=== PATIENT | female | born 1975 | race Caucasian/White ===

== ENCOUNTER 2022-04-25 14:26 | Emergency (ER) | payer SELFPAY ==
[2022-04-25 14:31] VITALS: BP 149/86; PULSE 76; TEMP 35.9; O2SAT 99; BMI 28.3
--- NOTE | 2022-04-25 15:03 | ED_ITS ---
HPI - Dizziness General Chief Complaint: Dizziness/Vertigo Stated Complaint: Headache, nausea Time Seen by Provider: 04/25/22 14:28 History of Present Illness HPI Narrative: Patient is a 47-year-old woman who presents with 48 hour history general malaise body aches right-sided musculoskeletal stiff neck as well as dizziness particularly when she turns her head. Patient scribe no focal neurologic defects had no fevers no chills no nuchal rigidity. He has had some nausea with some occasional vomiting. She has no dysuria no abdominal pain and states that she is not she is on oral control. She describes her symptoms as moderate. Related Data Home Medications Medication Instructions Recorded Confirmed No Known Home Medications 04/25/22 04/25/22 Allergies Allergy/AdvReac Type Severity Reaction Status Date / Time No Known Drug Allergies Allergy Verified 04/25/22 14:36 Review of Systems Status of ROS: Reports: 10 or more systems reviewed and unremarkable except as noted in History and below PFSH PFSH Social History Smoking Status: Current every day smoker What tobacco products do you use: cigarettes Do you use any of these nicotine containing products: None Second hand tobacco smoke exposure: No How often do you have a drink containing alcohol: never How often do you have six or more drinks on one occasion: Never AUDIT-C Alcohol total score: 0 Non-prescribed substance use: denies use Exam Const: Vital Signs, click to edit/add: Vital Signs - 24 hr 04/25/22 14:31 Temperature 96.7 F L Pulse Rate [Left P ulse Oximeter] 76 Blood Pressure [Ri ght Upper Arm] 149/86 H Pulse Oximetry 99 Course Vital Signs Vital signs: Initial Vital Signs Temperature 96.7 F L 04/25/22 14:31 Temperature Source Temporal Artery Scan 04/25/22 14:31 Pulse Rate 76 04/25/22 14:31 Blood Pressure 149/86 H 04/25/22 14:31 Blood Pressure Mean 107 04/25/22 14:31 Blood Pressure Position Supine 04/25/22 14:31 Pulse Oximetry 99 04/25/22 14:31 Oxygen Delivery Method 04/25/22 14:31 Vital Signs Temperature 96.7 F L 04/25/22 14:31 Pulse Rate 76 04/25/22 14:31 Blood Pressure 149/86 H 04/25/22 14:31 Pulse Oximetry 99 04/25/22 14:31 Temperature 96.7 F L 04/25/22 14:31 Pulse Rate 76 04/25/22 14:31 Blood Pressure 149/86 H 04/25/22 14:31 Pulse Oximetry 99 04/25/22 14:31 MDM - Dizziness MDM Narrative Medical decision making narrative: We did have a nice discussion about the possible etiologies of her symptoms. Do not believe she is having a cerebrovascular accident her signs of meningitis. Symptoms are most compatible with viral vertigo. Medical Records Medical records narrative: Reviewed Discharge Plan Discharge Clinical Impression: Vertigo Patient Disposition: Home, Self-Care Condition: Stable Instructions: Vertigo (ED) Additional Instructions: Zofran three times per day as needed for nausea Ibuprofen 600 mg three times a day as needed for body aches Rest Hydration Activity Level: Activity as Tolerated Discharge Diet: Regular Prescriptions: No Action No Known Home Medications 0RF Follow Up/Referrals: Leona Adler MD [Primary Care Provider] - Stand Alone Forms: [employer] Info Instructions
== END 2022-04-25 15:17 | disposition home or self-care (01) ==
PROVIDERS: Emergency Provider Internal Medicine; PCP Family Medicine
DX: R42 Dizziness and giddiness (principal)
CPT/HCPCS: 99282; 99283

== ENCOUNTER 2022-05-15 10:51 | Emergency (ER) | payer SELFPAY ==
--- NOTE | 2022-05-15 11:12 | ED_ITS ---
HPI - General Adult General Date Seen: 05/15/22 Chief complaint: Nausea/Vomiting Stated complaint: nausea Time Seen by Provider: 05/15/22 11:07 Source: patient and family Limitations: language barrier History of Present Illness HPI narrative: Patient is a 47-year-old Sami-speaking woman, history is obtained with the assistance of her daughter who is interpreting. They decline a formal full time staff interpreter. Patient was seen here a couple of weeks ago with vertigo. Symptoms started around April 25 with onset of some pain in the right side of her head, vertigo which is minimally positional. She also describes a headache which is mild, biparietal. Symptoms have been persistent. She has been using Zofran which does help with the nausea, but vertigo is been ongoing. She describes a sensation of movement, like she might fall down. She does not really describe feeling like she might pass out. She has not had any fainting. She denies chest pain or shortness of breath. She has not had any vomiting. The neck pain which radiated down into her shoulder, has resolved, but the headache persists. She denies trauma. Symptoms did briefly improve for a few days, but resumed last night and were quite strong. This is what prompted her to return today. She says it really does not get significantly worse when she moves, symptoms just are constant regardless. She does have a history of diabetes, which she does not take medication for. She smokes, denies alcohol use. Denies any prior history of stroke or heart disease, denies any family history of the same. She denies any other neurologic symptoms such as difficulty with speech, weakness, numbness. She is able to walk but says that her balance feels unreliable. She does not have a primary care doctor, she says that she does an upcoming appointment in the clinic for this coming . Related Data Previous Rx's Medication Instructions Recorded meclizine 25 mg tablet 25 mg PO TID #15 tab 05/15/22 Allergies Allergy/AdvReac Type Severity Reaction Status Date / Time No Known Drug Allergies Allergy Verified 05/15/22 13:10 Review of Systems Status of ROS: Reports: 10 or more systems reviewed and unremarkable except as noted in History and below [facility] Medical History Abscess of left groin Abscess of right groin Acute kidney injury Acute renal insufficiency Chest pain Encounter for examination following surgery Mass of left inguinal region Vaginal discharge Vomiting Surgical History History of cholecystectomy Status post incision and drainage Family History Father Diabetes Mother Diabetes Family/Other Diabetes Son Seizure Social History Narrative: Does not drink alcohol Does not exercise 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 In general, an alert, nontoxic woman. Been comfortably. Head: Normocephalic, atraumatic. Eyes: Pupils are equal reactive. Extraocular movements are full, nystagmus on rightward gaze. Conjunctivae are normal. ENT: Mucous membranes are moist. Tongue is midline. Neck: Supple without lymphadenopathy. No bruits. Nontender to palpation. Heart: Regular rate and rhythm. No murmur or rub. Lungs: Clear bilaterally. No increased work of breathing, crackles or wheezes. Abdomen: Soft and nontender. No organomegaly. Extremities: Well perfused. No edema. No calf tenderness. Pulses intact. Neurologic: Patient is alert and oriented to person and place. Speech is fluent. Face is symmetric. Moves all extremities equally. Cerebellar function intact by finger-nose testing. Gait is stable, Romberg negative. Affect: Normal. Skin: Warm and dry. Well perfused. Const: Vital Signs, click to edit/add: Vital Signs - 24 hr 05/15/22 11:22 Temperature 97 F L Pulse Rate [Pulse Oximeter] 68 Respiratory Rate 18 Blood Pressure [Ri ght Upper Arm] 134/86 Pulse Oximetry 99 Documenting provider has reviewed patient's vital signs: yes Course Course Hospital Course: Overall, exam is reassuring, I do not see any signs of ataxia. I am not seeing obvious findings on exam to strongly suggest stroke. She is not hypertensive here. However, with right-sided neck pain a couple of weeks ago and persistent vertigo which is not strongly positional, I do think imaging should be done today to rule out the possibility of dissection. We will go ahead and treat with Zofran and meclizine to start, can add a benzodiazepine if needed for persistent symptoms. CT scan of the head, CT angiogram will be done. I am not overly suspicious of intracranial hemorrhage, but again with headache and persistent symptoms I think this should be ruled out as well. I do not see anything here to suggest intracranial infection. CT of the head by my review is negative for acute hemorrhage or other findings. The final radiology review was likewise negative. Her CT angiogram was read by Radiology as showing the following: CTA head: No proximal large vessel occlusion or flow-limiting stenosis involving the major intracranial arteries. Dominant/nearly azygos right anterior cerebral artery. CTA neck: No evidence of dissection involving the major cervical arteries. No flow-limiting stenosis. She felt improved following medications. I discussed with them that while these 2 tests do not rule out possibility of stroke, they do help rule out the possibility of dissection. I think with isolated vertigo in the absence of findings of ataxia or other neurologic abnormalities, my suspicion of stroke is relatively low. I do not think it is unreasonable for her to take a daily aspirin in anticipation of her upcoming primary care appointment. Her labs including CBC and metabolic panel are notable mostly for an elevated glucose of 306. I have discussed with her that I do think she needs to be on medication for her diabetes. She says that she was at 1 point on medication but has not been for quite some time. Given that she has primary care coming up in a few days of not started her on medication but will let them start something when she sees follow-up in clinic. I have stressed the importance of primary care follow-up. I am going to have her take meclizine at home as this is been helpful for her. It may be that she would benefit from physical therapy for vertigo given persistence of symptoms. Discussed that if she has acute worsening or develops new symptoms I would have her return to the emergency department. Vital Signs Vital signs: Initial Vital Signs Temperature 97 F L 05/15/22 11:22 Temperature Source Temporal Artery Scan 05/15/22 11:22 Pulse Rate 68 05/15/22 11:22 Respiratory Rate 18 05/15/22 11:22 Blood Pressure 134/86 05/15/22 11:22 Blood Pressure Mean 102 05/15/22 11:22 Blood Pressure Position Supine 05/15/22 11:22 Pulse Oximetry 99 05/15/22 11:22 Oxygen Delivery Method 05/15/22 11:22 Vital Signs Temperature 97 F L 05/15/22 11:22 Pulse Rate 68 05/15/22 11:22 Respiratory Rate 18 05/15/22 11:22 Blood Pressure 134/86 05/15/22 11:22 Pulse Oximetry 99 05/15/22 11:22 Temperature 97 F L 05/15/22 11:22 Pulse Rate 68 05/15/22 11:22 Respiratory Rate 18 05/15/22 11:22 Blood Pressure 134/86 05/15/22 11:22 Pulse Oximetry 99 05/15/22 11:22 Medical Decision Making Lab Data Labs: Lab Results 05/15/22 05/15/22 05/15/22 Range/Units 12:00 12:05 12:05 WBC 7.29 (4.50-11.00) K/uL RBC 4.78 (4.00-5.20) m/uL Hgb 14.5 (12.0-16.0) gm/dL Hct 42.3 (33.0-51.0) % MCV 89 (80-100) fL MCH 30 (26-34) pg MCHC 34 (32-36) gm/dL RDW Coeff of Adrian 12.1 (11.5-15.5) % Plt Count 219 (140-440) K/uL Neut % (Auto) 74.2 H (42.0-72.0) % Lymph % (Auto) 21.3 (20-44) % [place] % (Auto) 3.2 (0.0-11.0) % Eos % (Auto) 1.1 (0.0-7.0) % Baso % (Auto) 0.1 (0.0-3.0) % Neut # (Auto) 5.40 (1.7-7.0) K/uL Lymph # (Auto) 1.55 (0.90-2.90) K/uL [place] # (Auto) 0.20 (0.00-0.90) K/UL Eos # (Auto) 0.08 (0.00-0.50) K/uL Baso # (Auto) 0.01 (0.00-0.30) K/uL Abs Immat Gran (auto) 0.01 (0.00-0.30) K/uL INR 1.02 (0.91-1.10) APTT 29 (23-33) Seconds Sodium 134 L (135-149) mmol/L Potassium 4.3 (3.6-5.1) mmol/L Chloride 102 (96-114) mmol/L Carbon Dioxide 26 (20-32) mmol/L BUN 10 (5-24) mg/dL Creatinine 0.5 (0.5-1.5) mg/dL Estimated Creat Clear 106.09 Estimated GFR 117 ml/min Glucose 324 H (60-115) mg/dL Calcium 9.0 (8.4-10.6) mg/dL Discharge Plan Discharge Clinical Impression: Vertigo, Poorly controlled type 2 diabetes mellitus Patient Disposition: Home, Self-Care Condition: Improved Instructions: Vertigo (ED) Additional Instructions: Continue Zofran as needed. Take meclizine as prescribed. Primary care follow- up on as planned, this is very important particularly given your elevated blood sugar. I would recommend for now that you take an aspirin daily. Prescriptions: New meclizine 25 mg tablet 25 mg PO TID Qty: 15 0RF Follow Up/Referrals: Leona Adler MD [Staff Physician] - Stand Alone Forms: [employer] Info Instructions
[2022-05-15 11:22] VITALS: BP 134/86; PULSE 68; RESP 18; TEMP 36.1; O2SAT 99; BMI 27.2
--- NOTE | 2022-05-15 11:42 | CRLHL7_ITS ---
For Patients: As a result of the Century Cures Act, medical imaging exams and procedure reports are released immediately into your electronic medical record. You may view this report before your referring provider. If you have questions, please contact your health care provider. INDICATION: Vertigo. Right neck pain. Headaches. TECHNIQUE: CT of the head without contrast. Coronal and sagittal reformats are included. COMPARISON: None. FINDINGS: No CT evidence of acute cortical infarct. No loss of callejas white matter differentiation. No hyperdense vessels to suggest intracranial thrombus. No acute intracranial hemorrhage. No mass effect or midline shift. No hydrocephalus or extra-axial collections. White matter is within normal limits for age. No acute osseous abnormalities. Mastoid air cells and paranasal sinuses are clear. Normal soft tissues. IMPRESSION: IMPRESSION:1. No CT evidence of acute cortical infarct. No acute intracranial hemorrhage. No other acute intracranial findings. Please note that all CT scans at this facility use dose modulation, iterative reconstruction, and/or weight-based dosing when appropriate to reduce radiation dose to as low as reasonably achievable. Dictated by Sandoval Bowens MD @ 05/15/2022 1:32:04 PM (Electronically Signed)
--- NOTE | 2022-05-15 11:42 | CT_ITS ---
Final Report Patient: EVAN PETIT Facility:?[facility] Patient ID:?[id number] Site Patient ID:?[id number]. Site :?[id number] Study:?CT Head Angio W/ 95CC [id number] 1:23:09 PM Ordering Physician:Taylor Suresh Final Report: DATE: 05/15/2022 CLINICAL HISTORY: Patient with vertigo and headache. TECHNIQUE: Standard helical CT image acquisition through the intracranial circulation following intravenous administration of contrast material with bolus tracking. Multiplanar reconstructed images were performed and interpreted. COMPARISON: CT same day. FINDINGS: There is no cerebral aneurysm or large vessel occlusion. The right internal carotid artery demonstrates moderate narrowing in its supraclinoid segment. The right middle cerebral artery and its branches are normal. The right anterior cerebral artery and its branches are normal. The left internal carotid artery is normal. The left middle cerebral artery and its branches are normal. The left anterior cerebral artery and its branches are normal. The anterior communicating artery is well visualized and appears normal. The right vertebral artery and PICA are normal. The left vertebral artery and PICA are normal. The vertebral arteries are codominant. The basilar artery is patent and appears normal. The right posterior cerebral artery is normal. The left posterior cerebral artery is normal. The visualized venous structures are patent. IMPRESSION: 1. No proximal intracranial large vessel occlusion or large aneurysm. 2. Moderate narrowing in the supraclinoid segment of the right internal carotid artery, likely due to intracranial atherosclerosis. Please note that all CT scans at this facility use dose modulation, iterative reconstruction, and/or weight-based dosing when appropriate to reduce radiation dose to as low as reasonably achievable. Dictated by Feng Martel MD @ 05/15/2022 4:32:12 PM (Electronic Signature)
--- NOTE | 2022-05-15 11:42 | CT_ITS ---
Final Report Patient: EVAN PETIT Facility:?[facility] Patient ID:?[id number] Site Patient ID:?[id number]. Site :?[id number] Study:?CT Neck Angio Angio W/ 95CC [id number] 1:23:06 PM Ordering Physician:Taylor Suresh Final Report: DATE: 05/15/2022 CLINICAL HISTORY: Patient with vertigo and right-sided neck pain. TECHNIQUE: Standard helical CT image acquisition of the neck up to the skull base after bolus intravenous contrast enhancement. Multiplanar reconstructed images performed on a separate workstation. COMPARISON: CT same day. FINDINGS: The origins of the great vessels from the aortic arch are patent. The origin of the right vertebral artery is patent. The origin of the left vertebral artery is patent. The common carotid arteries are patent. There is no stenosis at the origin of the right internal carotid artery. There is no stenosis at the origin of the left internal carotid artery. The rest of the cervical segments of the internal carotid arteries are patent up to the skull base. The left vertebral artery is dominant. The cervical segments of the vertebral arteries are patent up to the skull base. The visualized intracranial vasculature is unremarkable. The visualized lung apices are unremarkable. The thyroid gland is unremarkable. The soft tissues of the neck are unremarkable. There are degenerative changes in the cervical spine. IMPRESSION: Normal CT angiogram of the neck. Please note that all CT scans at this facility use dose modulation, iterative reconstruction, and/or weight-based dosing when appropriate to reduce radiation dose to as low as reasonably achievable. Dictated by Feng Martel MD @ 05/15/2022 4:33:47 PM (Electronic Signature)
[2022-05-15] MEDS: MECLIZINE HCL 25 MG TABLET PO (12:05)
[2022-05-15] MEDS: ONDANSETRON 2 MG/ML inj 4 MG IVP (12:05)
[2022-05-15] MEDS: 0.9 % SODIUM CHLORIDE 1000 ml 1,000 ML IV (12:06)
[2022-05-15 12:30] LABS: Basophils Absolute Auto 0.01 K/uL (0.00-0.30); Basophils Percent Auto 0.1 % (0.0-3.0); Eosinophils Absolute Auto 0.08 K/uL (0.00-0.50); Eosinophils Percent Auto 1.1 % (0.0-7.0); Hematocrit 42.3 % (33.0-51.0); Hemoglobin* 14.5 gm/dL (12.0-16.0); Immature Granulocytes Abs Auto 0.01 K/uL (0.00-0.30); Lymphocytes Absolute Auto 1.55 K/uL (0.90-2.90); Lymphocytes Percent Auto 21.3 % (20-44); Mean Corpuscular HGB Conc 34 gm/dL (32-36); Mean Corpuscular Hemoglobin 30 pg (26-34); Mean Corpuscular Volume 89 fL (80-100); Monocytes Percent Auto 3.2 % (0.0-11.0); Neutrophils Percent Auto 74.2 % (42.0-72.0); Platelet Count* 219 K/uL (140-440); RDW Coefficient of Variation % 12.1 % (11.5-15.5); Red Blood Count 4.78 m/uL (4.00-5.20); White Blood Count* 7.29 K/uL (4.50-11.00)
[2022-05-15 12:31] LABS: Chloride* 102 mmol/L (96-114); Potassium* 4.3 mmol/L (3.6-5.1); Sodium* 134 mmol/L (135-149)
[2022-05-15 12:33] LABS: Creatinine* 0.5 mg/dL (0.5-1.5); Est. Creatinine Clearance* 106.09; Estimated Glomerular Filt Rate 117 ml/min; INR 1.02 (0.91-1.10); Prothrombin Time 13.9 Seconds
[2022-05-15 12:34] LABS: Slide Review Reflex No
[2022-05-15 12:34] LABS: Blood Urea Nitrogen* 10 mg/dL (5-24); Carbon Dioxide* 26 mmol/L (20-32); Glucose* 324 mg/dL (60-115); Partial Thromboplastin Time* 29 Seconds (23-33)
--- NOTE | 2022-05-15 13:47 | ED.NURSE ---
Pt requesting food. okayed. Pt brought crackers.
== END 2022-05-15 14:09 | disposition home or self-care (01) ==
PROVIDERS: Emergency Provider Emergency Medicine
DX: R42 Dizziness and giddiness (principal); R51.9 Headache, unspecified; E11.65 Type 2 diabetes mellitus with hyperglycemia
CPT/HCPCS: 36415; 70450; 70496; 70498; 80048; 85025; 85610; 85730; 96374; 99285; A9270; J2405; J7030; Q9967

== ENCOUNTER 2022-05-19 08:50 | Outpatient (CLI) | payer SELFPAY ==
[2022-05-19 10:51] LABS: Cholesterol* 195 mg/dL (90-199)
[2022-05-19 10:52] LABS: HDL Cholesterol* 48 mg/dL (>=50); LDL Cholesterol Calculated 100 mg/dL (<100); Triglycerides* 234 mg/dL (40-149)
[2022-05-19 11:04] LABS: Creatinine Urine 74.2 mg/dL
[2022-05-19 11:11] LABS: Microalbumin Creatinine Ratio 10 mg/g (0-30); Microalbumin Urine 1 mg/dL
== END 2022-05-19 08:51 | disposition home or self-care (01) ==
PROVIDERS: Visit Provider Family Medicine
DX: R42 Dizziness and giddiness (principal); E11.65 Type 2 diabetes mellitus with hyperglycemia; E78.5 Hyperlipidemia, unspecified; F41.9 Anxiety disorder, unspecified
CPT/HCPCS: 80061; 82043; 82570; 84443

== ENCOUNTER 2022-06-20 18:36 | Emergency (ER) | payer SELFPAY ==
--- NOTE | 2022-06-20 18:50 | ED_ITS ---
HPI - General Adult General Time Seen by Provider: 18:50 Date Seen: 06/20/22 Chief complaint: Eye Problems Stated complaint: [facility] Time Seen by Provider: 06/20/22 18:45 Source: patient and family Mode of arrival: ambulatory History of Present Illness HPI narrative: Kalani is a 47 year old female with past medical history of poorly controlled diabetes mellitus type 2, hyperlipidemia, major depression and anxiety presents to the ED with family with a eye problem. 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 She has had light sensitivity and increased tearing, she has also had mild swelling around the eye, she denies any trauma, denies any headache, nausea vomiting. She has been waking up in the morning with some crusting on that side. no fevers or chills. she has some left ear pain associated with it. Patient states she has had intermittent blurriness with that eye. She denies any halo lights or a curtain coming down. she says she had similar symptoms 1 year ago, she ended up picking up [id number] eyedrops which helped. Patient does smoke cigarettes. She does not were glasses or contacts. Related Data Previous Rx's Medication Instructions Recorded tobramycin 0.3 %-dexamethasone 0.1 1 drp ophthalmic (eye) QID 5 days 06/20/22 % eye drops,suspension (TobraDex) #5 mL Allergies Allergy/AdvReac Type Severity Reaction Status Date / Time No Known Drug Allergies Allergy Verified 05/19/22 08:06 Review of Systems Status of ROS: Reports: 10 or more systems reviewed and unremarkable except as noted in History and below [facility] Medical History Abscess of left groin Abscess of right groin Acute kidney injury Acute renal insufficiency Chest pain Encounter for examination following surgery Mass of left inguinal region Swedish speaking patient Uninsured Vaginal discharge Vomiting Surgical History History of cholecystectomy Status post incision and drainage Family History Father Diabetes Mother Diabetes Family/Other Diabetes Son Seizure Social History Narrative: Does not drink alcohol Does not exercise 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, 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, 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 Tobacco abuse Smoking Status: Current every day smoker What tobacco products do you use: cigarettes Do you use any of these nicotine containing products: None Second hand tobacco smoke exposure: No How often do you have a drink containing alcohol: never How often do you have six or more drinks on one occasion: Never AUDIT-C Alcohol total score: 0 Non-prescribed substance use: denies use Little interest or pleasure in doing things: nearly every day Feeling down, depressed, or hopeless: nearly every day Exam Narrative: Exam Narrative: General: No obvious distress sitting comfortably HEENT: Tympanic membranes within normal limits bilaterally, Left eye: There is conjunctival injection, increased tearing, pupils equal round reactive to light, extraocular muscles intact, normal anterior chamber. Mild periorbital swelling. Right eye: Conjunctiva all normal, no periorbital swelling, extraocular muscles intact Oropharynx is clear and moist Neck: Supple full range of motion, no adenopathy Lungs: Clear to auscultation bilaterally Heart normal sinus rhythm Muscle skeletal: +5 strength upper lower extremities Neuro: Alert awake and oriented x3, cranial nerves 2-12 grossly intact Const: Vital Signs, click to edit/add: Vital Signs - 24 hr 06/20/22 18:51 06/20/22 19:25 Temperature 97.9 F Pulse Rate [Pulse Oximeter] 85 82 Respiratory Rate 14 Blood Pressure [Ri ght Upper Arm] 115/87 123/80 Pulse Oximetry 98 98 Oxygen Delivery Me thod Room Air Room Air Course Course Hospital Course: 7:15 PM: AIDET performed. Workup will include visual acuity, will place tetracaine eyedrops, to see if her pain is controlled this leads more to a con junctivitis, no injury noted, less likely glaucoma, keratitis or iritis. Patient was in agreement. Differential diagnosis include macular degeneration, acute glaucoma, iritis, keratitis, corneal abrasion, viral or bacterial conjunctivitis, scleritis. Reevaluation(s) Reevaluation #1: Patient's vision was 20/35 in both eyes. Pain is much improved, plan to discharge prescription for TobraDex given 1-2 drops every 4 hours, patient should follow up with Ophthalmology if no improvement over the next 48 hours, reasons return given. All questions answered Time: 19:53 Vital Signs Vital signs: Initial Vital Signs Temperature 97.9 F 06/20/22 18:51 Temperature Source Temporal Artery Scan 06/20/22 18:51 Pulse Rate 85 06/20/22 18:51 Respiratory Rate 14 06/20/22 18:51 Blood Pressure 115/87 06/20/22 18:51 Blood Pressure Mean 96 06/20/22 18:51 Blood Pressure Position Sitting 06/20/22 18:51 Pulse Oximetry 98 06/20/22 18:51 Oxygen Delivery Method 06/20/22 18:51 Vital Signs Temperature 97.9 F 06/20/22 18:51 Pulse Rate 85 06/20/22 18:51 Respiratory Rate 14 06/20/22 18:51 Blood Pressure 115/87 06/20/22 18:51 Pulse Oximetry 98 06/20/22 18:51 Oxygen Delivery Method 06/20/22 18:51 Temperature 97.9 F 06/20/22 18:51 Pulse Rate 82 06/20/22 19:25 Respiratory Rate 14 06/20/22 18:51 Blood Pressure 123/80 06/20/22 19:25 Pulse Oximetry 98 06/20/22 19:25 Oxygen Delivery Method 06/20/22 19:25 Discharge Plan Discharge Clinical Impression: Acute conjunctivitis of left eye Patient Disposition: Home, Self-Care Condition: Improved Instructions: How to Use Eye Drops (ED), Conjunctivitis (ED) Additional Instructions: Tobradex drops left eye, 1-2 drops every four hours, to use Motrin 400 mg every 4-6 hours for pain. To follow up with eye doctor if no improvement over the next 48 hours. Activity Level: Activity as Tolerated Prescriptions: New tobramycin-dexamethasone [TobraDex] 0.3-0.1 % drops,suspension 1 drp ophthalmic (eye) QID 5 Days Qty: 5 0RF Follow Up/Referrals: Provider,Not a Local [Primary Care Provider] - Stand Alone Forms: [employer] Info Instructions
[2022-06-20 18:51] VITALS: BP 115/87; PULSE 85; RESP 14; TEMP 36.6; O2SAT 98; BMI 26.7
[2022-06-20 19:25] VITALS: BP 123/80; PULSE 82; O2SAT 98
[2022-06-20] MEDS: TETRACAINE 0.5% OPHTH 2 DROP EYE-LEFT (19:30)
--- NOTE | 2022-06-20 19:35 | ED.NURSE ---
Pt reports symptom relief after eye drop administration. MD notified.
== END 2022-06-20 20:31 | disposition home or self-care (01) ==
PROVIDERS: Emergency Provider Student in an Organized Health Care Education/Training Program
DX: H10.32 Unspecified acute conjunctivitis, left eye (principal); E11.65 Type 2 diabetes mellitus with hyperglycemia
CPT/HCPCS: 99283; 99284

== ENCOUNTER 2023-02-02 23:20 | Emergency (ER) | payer OTHER, SELFPAY ==
[2023-02-02 23:25] VITALS: BP 157/97; PULSE 83; RESP 14; TEMP 36.5; O2SAT 98; BMI 27.4
--- NOTE | 2023-02-03 00:01 | ED_ITS ---
HPI - General Adult General Time Seen by Provider: 00:02 Date Seen: 02/03/23 Chief complaint: Extremity Pain/Injury, Lower Stated complaint: can't put presure on lft foot. Time Seen by Provider: 02/02/23 23:57 Source: patient and family Mode of arrival: ambulatory Limitations: no limitations History of Present Illness HPI narrative: 47-year-old female who comes in today with left foot pain. She has an area on the foot that has been bothering for about a year, she usually cuts this out but is been more painful today. No other complaints and no illnesses. Review of chart shows history of poorly controlled diabetes and medication noncompliance Related Data Previous Rx's Medication Instructions Recorded tobramycin 0.3 %-dexamethasone 0.1 1 drp ophthalmic (eye) QID 5 days 06/20/22 % eye drops,suspension (TobraDex) #5 mL Allergies Allergy/AdvReac Type Severity Reaction Status Date / Time amoxicillin Allergy Severe Anaphylaxis Verified 02/02/23 23:32 Review of Systems Status of ROS: Reports: 10 or more systems reviewed and unremarkable except as noted in History and below PFSH PFS Medical History Abscess of left groin Abscess of right groin Acute kidney injury Acute renal insufficiency Chest pain Encounter for examination following surgery Mass of left inguinal region [place] speaking patient Uninsured Vaginal discharge Vomiting Surgical History History of cholecystectomy Status post incision and drainage Family History Father Diabetes Mother Diabetes Family/Other Diabetes Son Seizure Social History Narrative: Does not drink alcohol Does not exercise 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, 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, 8 kids Tobacco abuse Smoking Status: Former smoker What tobacco products do you use: cigarettes Smoking quit date/years: <= 15 years ago Do you use any of these nicotine containing products: None Second hand tobacco smoke exposure: No How often do you have a drink containing alcohol: never How often do you have six or more drinks on one occasion: Never AUDIT-C Alcohol total score: 0 Non-prescribed substance use: denies use Little interest or pleasure in doing things: nearly every day Feeling down, depressed, or hopeless: nearly every day Exam Narrative: Exam Narrative: General: well nourished , NAD Head: Atraumatic and normocephalic ENT: External ears and external nose are normal Eyes: Conjunctiva clear, pupils are equal reactive, external ocular motions are intact Neck: Full spontaneous range of motion of the neck Lungs: No respiratory distress Musculoskeletal: No tenderness or deformity Neurologic: No gross focal neurologic deficits Skin: Left foot area of thickened skin with some mild surrounding bruising and tenderness on the plantar surface of the foot Psych: Mood and affect are appropriate Const: Vital Signs, click to edit/add: Vital Signs - 24 hr 02/02/23 23:25 Temperature 97.7 F Pulse Rate [Pulse Oximeter] 83 Respiratory Rate 14 Blood Pressure [Ri ght Upper Arm] 157/97 H Pulse Oximetry 98 Oxygen Delivery Me thod Room Air Course Course Hospital Course: Patient seen examined, prior records reviewed. Patient presents today with a plantar wart. Discussed with her that she will need to follow-up with Podiatry to have this evaluated. DuoDerm was cut to fit her a work to give her little padding, she should start using corner callus pad. Vital Signs Vital signs: Initial Vital Signs Temperature 97.7 F 02/02/23 23:25 Temperature Source Temporal Artery Scan 02/02/23 23:25 Pulse Rate 83 02/02/23 23:25 Respiratory Rate 14 02/02/23 23:25 Blood Pressure 157/97 H 02/02/23 23:25 Blood Pressure Mean 117 02/02/23 23:25 Blood Pressure Position Supine 02/02/23 23:25 Pulse Oximetry 98 02/02/23 23:25 Oxygen Delivery Method Room Air 02/02/23 23:25 Vital Signs Temperature 97.7 F 02/02/23 23:25 Pulse Rate 83 02/02/23 23:25 Respiratory Rate 14 02/02/23 23:25 Blood Pressure 157/97 H 02/02/23 23:25 Pulse Oximetry 98 02/02/23 23:25 Oxygen Delivery Method Room Air 02/02/23 23:25 Temperature 97.7 F 02/02/23 23:25 Pulse Rate 83 02/02/23 23:25 Respiratory Rate 14 02/02/23 23:25 Blood Pressure 157/97 H 02/02/23 23:25 Pulse Oximetry 98 02/02/23 23:25 Oxygen Delivery Method Room Air 02/02/23 23:25 Medical Decision Making Medical Records Medical records reviewed: Yes I reviewed the patient's medical records Lab Data Lab results reviewed: Yes I reviewed the patient's lab results Discharge Plan Discharge Clinical Impression: Plantar wart Patient Disposition: Home, Self-Care Condition: Stable Instructions: Plantar Wart (ED) Additional Instructions: Apply an [id number] pad to help with healing. Activity Level: No Restrictions Discharge Diet: Diabetic Prescriptions: No Action tobramycin-dexamethasone [TobraDex] 0.3-0.1 % drops,suspension 1 drp ophthalmic (eye) QID 5 Days Qty: 5 0RF Follow Up/Referrals: Provider,Not a Local [Primary Care Provider] - Arpan Jesus DPM [Staff Physician] - Stand Alone Forms: MyHealth Info Instructions
== END 2023-02-03 00:14 | disposition home or self-care (01) ==
LOC: ED 02-03 00:10
PROVIDERS: Emergency Provider Family Medicine
DX: B07.0 Plantar wart (principal)
CPT/HCPCS: 99282; 99283

== ENCOUNTER 2024-09-23 19:15 | Outpatient (CLI) | payer OTHER, SELFPAY ==
[2024-09-26 07:30] LABS: HPV Source Cervix; HPV, High Risk by TMA Not Detected
== END 2024-09-23 19:16 | disposition home or self-care (01) ==
PROVIDERS: Visit Provider Physician Assistant
DX: R82.90 Unspecified abnormal findings in urine (principal); N81.9 Female genital prolapse, unspecified; N39.0 Urinary tract infection, site not specified; Z12.4 Encounter for screening for malignant neoplasm of cervix
CPT/HCPCS: 87086; 87186; 87624; 87625; 88141; 88142

== ENCOUNTER 2024-10-11 12:07 | Outpatient (CLI) | payer OTHER, SELFPAY | END 2024-10-11 12:08 | disposition home or self-care (01) | LOC: NFLDREF 12:08 | PROVIDERS: Visit Provider Registered Nurse | DX: N89.8 Other specified noninflammatory disorders of vagina (principal); N39.0 Urinary tract infection, site not specified; R81 Glycosuria; B37.31 Acute candidiasis of vulva and vagina | CPT/HCPCS: 80053; 87086 ==

== ENCOUNTER 2025-02-28 14:00 | Outpatient (CLI) | payer OTHER, SELFPAY | END 2025-02-28 14:01 | disposition home or self-care (01) | PROVIDERS: Visit Provider Nurse Practitioner Family | DX: R39.9 Unspecified symptoms and signs involving the genitourinary system (principal) | CPT/HCPCS: 87086 ==

== ENCOUNTER 2025-02-28 14:38 | Emergency (ER) | payer OTHER, SELFPAY ==
[2025-02-28] VITALS (17 sets, daily range): BP systolic 140–168; BP diastolic 78–98; PULSE 121–128; RESP 16–22; TEMP 37.2–39.3; O2SAT 91–97; BMI 28.3
--- OUTSIDE RECORDS SUMMARY | 2025-02-28 14:40 | XMS_ITS | Clinical Summary ---
Author Organization [facility] Address [address] [place] [address] Care Team Providers Care Captain Waiter Name Role Phone Pcp, No Primary Care Provider Unavailabl e Allergies Active Allergy Reactions Criticality Noted Date Comments Amoxicillin Hives 03/08/2024 Medications blood-glucose meter Test 4 times per day. 1 Each 4 2:18 PM CDT 014 Active blood sugar diagnostic (ONE TOUCH ULTRA TEST) strip Test 4 times per day. 100 Each 4 2:18 PM CDT 014 Active lancets (MICROLET LANCET) Test 4 times per day. 100 Each 4 2:18 PM CDT 014 Active acetaminophen (TYLENOL) 325 mg tablet Take 1-2 tablets by mouth every 4 hours if needed for Pain. Max acetaminophen dose: 4000mg in 24 hrs. 0 014 Active ibuprofen (ADVIL; MOTRIN) 600 mg tabletIndications :Vaginal pain Take 1 Tablet (600 mg) by mouth every 6 hours if needed for Pain. Maximum of 3200 mg in 24 hours. 40 Tablet 025 Active metFORMIN (FORTAMET) 1,000 mg Controlled-Releas e tablet Take 1,000 mg by mouth once daily with evening meal. 025 Active ondansetron 4 mg disintegrating tabletIndications :Vomiting, unspecified vomiting type, unspecified whether nausea present Place 2 Tablets (8 mg) on the tongue every 8 hours if needed for Nausea/Vomiting. 20 Tablet 025 Active nitrofurantoin macrocrystals/mon ohydrate (Macrobid) 100 mg capsuleIndication s:Acute cystitis without hematuria Take 1 Capsule (100 mg) by mouth two times daily for 5 days. 10 Capsule 025 2024 boric acid 600 mg vaginal suppositoryIndica tions:Vaginal yeast infection,Infecti on due to Rekha glabrata Insert 1 Suppository (600 mg) into the vagina at bedtime for 14 days. 14 Suppository 025 2024 Active Problems Problem Noted Date Diagnosed Date Diabetes mellitus type 2 with complications 02/2025 Abdominal pain 03/15/2014 Overview (07/05/2017): EGD 06/2017 mild gastritis, duodenitis Liver mass, right lobe 03/15/2014 Type II or unspecified type diabetes mellitus without mention of complication, uncontrolled 03/10/2014 Constipation 03/07/2014 Tobacco use in 03/07/2014 Trinidadian speaking patient 02/28/2014 Depressive disorder, not elsewhere classified Resolved Problems Problem Noted Date Diagnosed Date Resolved Date Vaginal delivery 03/09/2014 11/27/2024 Antepartum chorioamnionitis 03/08/2014 11/27/2024 Overview (03/08/2014): Symptoms began at 1944 on 03/08/2014 with PROM on 02/28/2014 High-risk supervision 03/07/2014 11/27/2024 Non-Nigerian speaking patient 03/04/2014 03/07/2014 Overview (03/04/2014): 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 parts manager Gestational diabetes mellitus 03/03/2014 11/27/2024 Premature rupture of membranes 02/28/2014 11/27/2024 Obesity complicating 02/28/2014 11/27/2024 Overview (02/28/2014): BMI 38 Grand multiparity with current 02/28/2014 11/27/2024 Advanced maternal age (AMA) in 02/28/2014 11/27/2024 Hx of macrosomia in i n prior , currently 02/28/2014 03/10/2014 Hx of gestational diabetes i n prior , currently 02/28/2014 03/10/2014 Supervision of other normal 03/01/2007 03/07/2014 Abnormal maternal glucose to aurelio, antepartum 03/01/2007 03/07/2014 Encounters Date Type Department Care Team Description 02/24/[address] [place] [address] Villarreal-Stophe l, Perri Taresa, DO Results 02/20/2025 9:00 AM CDT Office Visit [address] [place] [address] Villarreal-Stophe l, Perri Taresa, DO Follow Up (F/U from an infection she had. Been feeling dizzy ands nausea this morning.) 02/20/2025 Travel 02/06/[address] [place] [address] Villarreal-Stophe l Perri Taresa, DO Results 02/05/[address] [place] [address] Villarreal-Stophe l, Perri Taresa, DO Results 02/03/2025 3:15 PM CDT Office Visit [address] [place] [address] Villarreal-Stophe l Perri Elizaa, DO Recheck 02/03/2025 Travel 01/31/[address] [place] [address] Villarreal-Stophe l, Perri Taresa, DO Questions (PESSARY ) 01/21/[address] [place] [address] Villarreal-Stophe l Perri Taresa, DO Results (Ultrasound results ) 01/20/2025 Orders Only [address] [place] [address] VillarrealPerri Madrid, DO <No scans attached> 01/17/2025 10:48 AM CDT - 01/17/2025 11:59 PM CDT Hospital Encounter [facility] [address] [facility] [place] [address] Perri Bhatia, Left ovarian cyst 01/17/2025 Travel 01/10/2025 2:15 PM CDT Office Visit [facility] [address] [place] [address] Perri Bhatia, Follow Up 01/10/2025 Travel 12/09/2024 Telephone [facility] [address] [place] [address] Perri Bhatia, Results 12/06/2024 3:15 PM SUPERVISOR MOLDING Office Visit [facility] [address] [place] [address] Perri Bhatia, DO Pelvis Pain/problem 12/06/2024 Travel from Last 3 Months Immunizations Immunization Administration Dates Next Due Influenza, IIV4 07/24/2017 Pneumococcal Poly,23-Valent (Pneumovax) 06/28/20 19 Tdap 03/18/2014 Family History Medical History Relation Name Comments Good Health Father Good Health Mother Relation Name Status Comments Father Mother Social History Tobacco Use Types Packs/Day Years Used Date Smoking Tobacco: Every Day Cigarettes 0.5 34.4 Started: 10/23/1990 Smokeless Tobacco: Never Tobacco Cessation:Ready to Q uit: No; Counseling Given: Yes Comments:TIP done 03/06/14 Alcohol Use Standard Drinks/Week Comments No 0 (1 standard drink = 0.6 oz pur e alcohol) Social Connections Answer Date Recorded Frequency of Communication with Friends and Fami ly 0 02/10/2023 Financial Resource Strain Answer Date R ecorded Difficulty of Paying Living Expenses 3 02/10/2023 Difficulty of Paying Living Expenses Not on file 02/10/2023 Food Insecurity Answer Date Recorded Worried About Running Out of Food in the Last Ye ar 1 02/10/2023 Transportation Needs Answer Date Record ed Lack of Transportation (Medical) 1 02/10/2023 Housing Stability Answer Date Recorded Unable to Pay for Housing in the Last Year 1 02/10/2023 Interpersonal Safety Answer Date Record ed Are you being hit, kicked, p ushed or yelled at (see row info)? No 11/24/2024 Interpersonal Safety Abuse 12 - 18 Not on file 11/24/2024 Interpersonal Safety Ambulatory Vulnerability No t on file 11/24/2024 Comments No Sex and Gender Information Value Date Recorded Sex Assigned at Not on file Legal Sex Female 5:48 AM SUPERVISOR MOLDING Gender Identity Not on file Sexual Orientation Not on file Obstetrics History Para Term AB IAB SAB Ectopic Multiple Livin g Live Births 8 8 6 2 0 0 0 0 0 7 2 Date Outcome GA Total Labor Labor/2nd/3rd Weight Sex Type Anes PTL Karla A1 A5 Name Clin Term Term Term Term Term Term C-Sec tion Livin g 014 31w 6d 2.66 kg (5 lb 13.8 oz) M Y Livin g 6 7 PETIT AGAPIT O,BB Delivery Location:[facility] Comments:pPROM at 30 4 /7 weeks; choriomanionitis Last Filed Vital Signs Vital Sign Reading Time Taken Comments Blood Pressure 142/82 02/20/2025 9:07 AM CDT Pulse 88 02/20/2025 9:07 AM CDT Temperature 36.7 C (98 F) 11/24/2024 12:04 PM SUPERVISOR MOLDING Respiratory Rate 14 11/24/2024 12:0 4 PM SUPERVISOR MOLDING Oxygen Saturation 97% 02/20/2025 9:07 AM CDT Inhaled Oxygen Concentration - - Weight 72.5 kg (159 lb 14.4 oz) 02/20/2025 9:07 AM CDT Height 157.5 cm (5' 2.01) 02/20/2025 9:07 AM CD T Body Mass Index 29.24 02/20/2025 9:07 AM CDT Plan of Treatment Health Maintenance Due Date Last Done Comments Depression screening for age 12+ 1988 Hepatitis B series for Diabe hector (1 of 3 - 19+ 3-dose series) 1995 Pneumococcal series for age 6-49 (2 of 2 - PCV) 06/28/2020 06/28/2019 Colonoscopy through age 75 2021 Lipids for age 45-75 2021 Mammogram for age 45-75 2021 Pap test for age 21-65 06/28/2022 9, 06/28/2019, 11/21/2011, Additional history exists Tetanus booster 03/18/2024 03/18/2014 COVID-19 vaccine series ( season) 2024 01/30/2021, 01/09/2021 Influenza Vaccine (Season Ended) 2025 07/24/20 17 BMI (ht and wt on same day) for age 18+ 02/20/2026 02/20/2025, 11/27/2024 HIV for age 15-65 Completed 03/09/2014 Hepatitis C screening for ag e 18-79 Completed 03/18/2014, 03/09/2014 Tdap Completed 03/18/2014 Procedures Procedure Name Priority Date/Time Associated Diagnosis Comments TRICHOMONAS, REKHA, AND BACTERIAL VAGINOSIS BY FRIEDA Routine 02/20/2025 11:58 AM CDT Follow-up exam URINALYSIS MICROSCOPIC STAT 02/20/2025 9:57 AM CDT Follow-up exam URINE CULTURE STAT 02/20/2025 9:57 AM CDT Follow-up exam UA W/ SEDIMENT EXAM REFLEXED PER CRITERIA STAT 02/20/2025 9:57 AM CDT Follow-up exam URINALYSIS MICROSCOPIC STAT 02/03/2025 3:33 PM CDT Dysuria GC CHLAMYDIA TRACH PROBE Routine 02/03/2025 3:33 PM CDT Vaginal discharge TRICHOMONAS, REKHA, AND BACTERIAL VAGINOSIS BY FRIEDA Routine 02/03/2025 3:33 PM CDT Vaginal discharge URINE CULTURE STAT 02/03/2025 3:33 PM CDT Dysuria UA W/ SEDIMENT EXAM REFLEXED PER CRITERIA STAT 02/03/2025 3:33 PM CDT Dysuria US PELVIS COMPLETE TA AND TV Routine 01/17/2025 11:53 AM CDT Left ovarian cyst GC CHLAMYDIA TRACH PROBE Routine 12/06/2024 3:20 PM SUPERVISOR MOLDING Vaginal discharge TRICHOMONAS, REKHA, AND BACTERIAL VAGINOSIS BY FRIEDA Routine 12/06/2024 3:20 PM SUPERVISOR MOLDING Vaginal discharge MILKER MACHINE THIN PREP PAP SCREEN IMAGED Routine 06/28/2019 10:45 AM CDT ANTI HCV Early AM 03/18/2014 6:12 AM CDT EXPOSURE (BBF) RAPID HIV STAT 03/09/2014 12:30 AM CDT from Last 3 Months or Most Recently Relevant to Health Maintenance Results * TRICHOMONAS, REKHA, AND BACTERIAL VAGINOSIS BY FRIEDA (02/20/2025 11:58 AM CDT) Only the most recent of3 resultswithin the time period is included. REKHA SPECIES Negative Negative 3:11 AM CDT [facility] REKHA GLABRATA Negative Negative 02/21/2025 3:11 AM CDT [facility] TRICHOMONAS VVA Negative Negative 3:11 AM CDT [facility] BACTERIAL VAGINOSIS Negative Negative 02/21/2025 3:11 AM CDT [facility] Other VAGINAL SWAB / Unknown Non-Blood / Unknown 02/20/2025 11:58 AM CDT 02/20/2025 11:59 AM CDT us Perri Mendoza DO MICROBIOLOGY Final Result [facility] [address] [place] [address], [place] * URINALYSIS MICROSCOPIC (02/20/2025 9:57 AM CDT) Only the most recent of2 resultswithin the time period is included. RBC None Seen 0-2, None Seen /HPF 02/20/2025 10:12 AM CDT [facility] WBC 0-2 0-2, 3-5, None Seen /HPF 02/20/2025 10:12 AM CDT [facility] BACTERIA None Seen None Seen, Rare, Few Bacteria/ HPF 02/20/2025 10:12 AM CDT [facility] EPITHELIAL CELLS Few None Seen, Few Epi/HPF 02/20/2025 10:12 AM CDT [facility] Urine URINE SPECIMEN / Unknown Non-Blood / Unknown 02/20/2025 9:57 AM CDT 02/20/2025 9:57 AM CDT us Perri TartoucanBoxa Villarreal-Stophel DO URINE Final Result [facility] [address] [place] [address] * URINE CULTURE [42766.2] - STAT (02/20/2025 9:57 AM CDT) Only the most recent of2 resultswithin the time period is included. CULTURE <10,000 CFU/mL multiple organisms 02/22/2025 2:36 PM CDT [facility] Urine URINE SPECIMEN / Unknown Non-Blood / Unknown 02/20/2025 9:57 AM CDT 02/20/2025 9:57 AM CDT us Perri TartoucanBoxa Villarreal-Stophel DO MICROBIOLOGY Final Result [facility] [address] [place] [address], [place] * (ABNORMAL) UA W/ SEDIMENT EXAM REFLEXED PER CRITERIA [95243.2] - STAT (02/20/2025 9:57 AM CDT) Only the most recent of2 resultswithin the time period is included. COLOR Yellow Yellow Color 02/20/2025 10:09 AM [facility] CLARITY Clear Clear Clarity 02/20/2025 10:09 AM [facility] SPECIFIC GRAVITY,URINE 1.015 1.010, 1.015, 1.020, 1.025 02/20/2025 10:09 AM [facility] PH,URINE 6.0 6.0, 7.0, 8.0, 5.5, 6.5, 7.5, 8.5 02/20/2025 10:09 AM [facility] UROBILINOGEN, QUALITATIVE Normal Normal EU/dl 02/20/2025 10:09 AM [facility] PROTEIN, URINE Negative Negative mg/dL 02/20/2025 10:09 AM [facility] GLUCOSE, URINE >=1000(A) Negative mg/dL 02/20/2025 10:09 AM [facility] KETONES,URINE Negative Negative mg/dL 02/20/2025 10:09 AM [facility] BILIRUBIN,URI NE Negative Negative 02/20/2025 10:09 AM [facility] OCCULT BLOOD,URINE Negative Negative 02/20/2025 10:09 AM [facility] NITRITE Negative Negative 02/20/2025 10:09 AM [facility] LEUKOCYTE ESTERASE Negative Negative 02/20/2025 10:09 AM [facility] Urine URINE SPECIMEN / Unknown Non-Blood / Unknown 02/20/2025 9:57 AM CDT 02/20/2025 9:57 AM CDT us Perri Villarreal-Stophel DO URINE Final Result [facility] [address] [place] [address] * GC CHLAMYDIA TRACH PROBE (02/03/2025 3:33 PM CDT) Only the most recent of2 resultswithin the time period is included. CHLAMYDIA PROBE Negative 12:53 PM CDT [facility] N GONORRHOEAE PROBE Negative 02/04/2025 12:53 PM CDT [facility] Other VAGINAL SWAB / Unknown Non-Blood / Unknown 02/03/2025 3:33 PM CDT 02/03/2025 3:56 PM CDT us Perri Mendoza DO MICROBIOLOGY Final Result [facility] [address] [place] [address], [place] * US PELVIS COMPLETE TA AND TV (01/17/2025 11:53 AM CDT) Anatomical Region Laterality Modality Pelvis Ultrasound 01/20/2025 7:25 AM CDT Impressions 01/20/2025 7:25 AM CDT 1. Shadowing 7 mm calcification in the left ovary without an otherwise specific ovarian cyst or mass. Therefore this may be of no clinical significance and not otherwise specific for teratoma. 2. Consider an MRI of the pelvis to better evaluate the character of the left ovary versus a follow-up ultrasound in 3-6 months to assess for stability. 3. Uterus and right ovary normal. Dictated by Jak Castro MD @ 01/20/2025 7:25:58 AM (Electronically Signed) Narrative 01/20/2025 7:25 AM CDT For Patients: As a result of the Century Cures Act, medical imaging exams and procedure reports are released immediately into your electronic medical record. You may view this report before your referring provider. If you have questions, please contact your health care provider. INDICATION: Left adnexal cyst with possible calcification noted on recent abdomen pelvis CT TECHNIQUE: Ultrasound pelvis transabdominal and transvaginal for better assessment or to better visualize the endometrium. Real-time sonographic images with spectral and color Doppler imaging of the ovaries were obtained. COMPARISON: Abdomen pelvis CT 11/24/2024 FINDINGS: Uterus: 7.7 x 4.7 x 3.5 cm. Normal echotexture of the myometrium. No masses. Nabothian cyst at the level of the cervix. Endometrium: 3 mm in thickness. No sign of endometrial mass or fluid. Right ovary: 2.2 x 2.2 x 1.4 cm. No ovarian or adnexal masses. Normal arterial and venous blood flow. Left ovary: 2.6 x 1.6 x 1.1 cm. Single 7 mm shadowing calcification. The ovary otherwise has a heterogeneous echo pattern without dominant cystic or echogenic components. Normal arterial and venous blood flow. Cul-de-sac: No significant free fluid. Procedure Note Dagoberto Castro MD - 01/20/2025 For Patients: As a result of the Cures Act, medical imagingexams and procedure reports are released immediately into your electronicmedical record. You may view this report before your referring provider.If you have questions, please contact your health care provider. INDICATION: Left adnexal cyst with possible calcification noted on recent abdomenpelvis CT TECHNIQUE: Ultrasound pelvis transabdominal and transvaginal for better assessment orto better visualize the endometrium. Real-time sonographic images withspectral and color Doppler imaging of the ovaries were obtained. COMPARISON: Abdomen pelvis CT 11/24/2024 FINDINGS: Uterus: 7.7 x 4.7 x 3.5 cm. Normal echotexture of the myometrium. Nomasses. Nabothian cyst at the level of the cervix. Endometrium: 3 mm in thickness. No sign of endometrial mass or fluid. Right ovary: 2.2 x 2.2 x 1.4 cm. No ovarian or adnexal masses. Normalarterial and venous blood flow. Left ovary: 2.6 x 1.6 x 1.1 cm. Single 7 mm shadowing calcification. Theovary otherwise has a heterogeneous echo pattern without dominant cysticor echogenic components. Normal arterial and venous blood flow. Cul-de-sac: No significant free fluid. IMPRESSION: 1. Shadowing 7 mm calcification in the left ovary without an otherwisespecific ovarian cyst or mass. Therefore this may be of no clinicalsignificance and not otherwise specific for teratoma. 2. Consider an MRI of the pelvis to better evaluate the character of theleft ovary versus a follow-up ultrasound in 3-6 months to assess forstability. 3. Uterus and right ovary normal. Dictated by Jak Castro MD @ 01/20/2025 7:25:58 AM (Electronically Signed) us Perri Mendoza DO US Final Result * MILKER MACHINE THIN PREP PAP SCREEN IMAGED (06/28/2019 10:45 AM CDT) Case Report Gynecologic Cytology Report Case: [id number] Authorizing Provider: Leona Adler MD Collected: 06/28/2019 1045 Ordering Location: [facility] Received: 07/01/2019 0754 First Screen: Hillary Camacho Specimen: MILKER MACHINE ThinPrep Vial Screening, Cervical/Vaginal 07/05/2019 11:07 AM CDT [facility] INTERPRETATION/ RESULT NEGATIVE FOR INTRAEPITHELIAL LESION OR MALIGNANCY (NIL) (none) 07/05/2019 11:07 AM CDT [facility] at 1107 CDT SPECIMEN ADEQUACY Satisfactory for evaluation Endocervical component present 07/05/2019 11:07 AM CDT [facility] HPV REQUEST HPV and PAP 07/05/2019 11:07 AM CDT [facility] Date of LMP 07/05/2019 11:07 AM CDT [facility] Comment:unsure Automated Review Successful 07/05/2019 11:07 AM CDT [facility] Comment:Specimen processed s uccessfully by automated inspector wire rope device, ThinPrep Imaging System, [employer] ANCILLARY TESTING MILKER MACHINE HPV Ordered, Please see separate report 07/05/2019 11:07 AM CDT [facility] Note The pap test is a screening technique, not a diagnostic procedure. It is used primarily to screen for squamous cancers and precursor lesions. Published studies have shown that it is subject to both false negative and false positive results. The pap test should not be used as the sole means to diagnose or exclude pre-malignant and malignant lesions. Cytology is screened and interpreted at [facility] [employer] [facility], Central Laboratory - [address], [place] [address] and [facility] - [address] [place] [address]; [place] [address] and [facility] - [address]; [place] [address] and [facility] [address]; [place] [address] 07/05/2019 11:07 AM CDT [facility] Other (Cervical/Vagina l) 06/28/2019 10:45 AM CDT 07/01/2019 7:54 AM CDT Leona Adler MD PATHOLOGY/CYTOLOGY Final Result [facility] [address] [place] [address], * ANTI HCV (03/18/2014 6:12 AM CDT) HEPATITIS C ANTIBODY Non-Reacti ve Non-Reacti ve 03/18/2014 7:25 AM CDT [facility] Blood specimen (specimen) BLOOD SPECIMEN / Unknown Venipuncture / Unknown 03/18/2014 6:12 AM CDT 03/18/2014 6:39 AM CDT Narrative [facility] - 03/18/2014 7:25 AM CDT Antibodies to HCV not detected; does not exclude the possibility of exposure to HCV. George Ruiz MD SEND OUTS Final R esult [facility] [address] [place] [address], [place] * Patient Source Rapid HIV - Unknown HIV (03/09/2014 12:30 AM CDT) SOURCE RAPID HIV SCREEN Non-Reacti ve Non-Reacti ve 03/09/2014 1:15 AM CDT [facility] Blood specimen (specimen) BLOOD SPECIMEN / Unknown Non-Lab Venipuncture / Unknown 03/09/2014 12:30 AM CDT 03/09/2014 12:40 AM CDT us Madeleine Yip MD SEND OUTS Final Result [facility] [address] [place] [address], [place] from Last 3 Months or Most Recently Relevant to Health Maintenance Advance Directives * Full Code (Latest Code Status on File) Date Activated Date Inactivated Comments 03/15/2014 3:24 AM 03/18/2014 8:29 PM * Full Code Date Activated Date Inactivated Comments 03/09/2014 3:33 AM 03/11/2014 1:11 PM * Full Code Date Activated Date Inactivated Comments 02/28/2014 9:43 AM 03/09/2014 3:33 AM Care Teams Captain Waiter Relationship Specialty Start Date End Date Pcp, No . PCP - General 02/06/23
--- OUTSIDE RECORDS SUMMARY | 2025-02-28 14:40 | XMS_ITS | Patient Health Record ---
Author Organization [facility] Address [address] [place] [address] Care Team Providers Care Spray I Painter Name Role Phone None, No PCP Primary Care Provider UnavailAlie Miller [phone] Reason For Referral No Information Encounters Encounter Location Date Provider Diagnosis [facility] [address] [place] [phone] 02/27/2025 Alie Pabon Plan Of Treatment Next Appt Details Provider Name:Alie Pabon, 0 03/04/2025 02:00:00 PM, [address] [facility], [address], [place], [place], [phone],
--- OUTSIDE RECORDS SUMMARY | 2025-02-28 14:40 | XMS_ITS ---
Author Organization [facility] Address [address] [place] [address] Care Team Providers Care Distribution Collection Operator Name Role Phone None, No PCP Primary Care Provider Alie Gray [phone] REASON FOR VISIT Surg Con 03/04-CALLED PT 02/27 Encounters Encounter Location Date Provider Diagnosis [address] [id number] 02/27/2025 Alie Pabon Plan Of Treatment Next Appt Details Provider Name:Alie Pabon, 0 03/04/2025 02:00:00 PM, [address] [place] [address], [place] [address], [place], [place], [phone], Progress Notes * Todd PETITB:1975 ([age] yo F)Acc No.[id number]:02/27/2025 Patient: Kalani RIELY :1975 A ge:49 Y S ex:Female Address:[place], [address] * true * Date: Generated for Printi ng/Faxing/eTransmitting on: 0 02/28/2025 02:40 PM CDT
[2025-02-28 15:25] LABS: Lactate* 1.7 mmol/L (0.5-1.9)
[2025-02-28 15:27] LABS: Basophils Absolute Auto 0.02 K/uL (0.00-0.30); Basophils Percent Auto 0.2 % (0.0-3.0); Eosinophils Absolute Auto 0.01 K/uL (0.00-0.50); Eosinophils Percent Auto 0.1 % (0.0-7.0); Hemoglobin* 13.8 gm/dL (12.0-16.0); Immature Granulocytes Abs Auto 0.11 K/uL (0.00-0.30); Immature Granulocytes Pct Auto 1.1 %; Lymphocytes Percent Auto 6.8 % (20-44); Mean Corpuscular HGB Conc 35 gm/dL (32-36); Mean Corpuscular Hemoglobin 30 pg (26-34); Mean Corpuscular Volume 87 fL (80-100); Monocytes Percent Auto 6.1 % (0.0-11.0); Neutrophils Percent Auto 85.7 % (42.0-72.0); Platelet Count* 238 K/uL (140-440); RDW Coefficient of Variation % 12.1 % (11.5-15.5); Red Blood Count 4.62 m/uL (4.00-5.20)
[2025-02-28 15:29] LABS: Slide Review Reflex No
[2025-02-28] MEDS: ACETAMINOPHEN 500 MG TABLET 1000 MG PO (15:37)
--- OUTSIDE RECORDS SUMMARY | 2025-02-28 15:37 | XMS_ITS | Clinical Summary ---
Author Organization [employer] [facility] Address [address] [place] [address] Care Team Providers Care Real Estate Associate Attorney Name Role Phone Pcp, No Primary Care [...] 03/10/2014 Constipation 03/07/2014 Tobacco use in 03/07/2014 Mongolian speaking patient 02/28/2014 Depressive disorder, not elsewhere classified Resolved Problems Problem Noted Date Diagnosed Date Resolved Date Vaginal delivery 03/09/2014 11/27/2024 Antepartum chorioamnionitis 03/08/2014 11/27/2024 Overview (03/08/2014): Symptoms began at 1945 on 03/08/2014 with PROM on 02/28/2014 High-risk supervision 03/07/2014 11/27/2024 Non-Yemeni speaking patient 03/04/2014 03/07/2014 Overview (03/04/2014): 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 Been feeling dizzy ands nausea this morning.) 02/20/2025 Travel 02/06/[address] [place] [address] Villarreal-Stophe l Perri Taresa, DO Results 02/05/[address] [place] [address] Villarreal-Stophe l, Perri Taresa, DO Results 02/03/2025 3:15 PM CDT Office Visit [address] [place] [address] Villarreal-Stophe l Perri Elizaa, DO Recheck 02/03/2025 Travel 01/31/[address] [place] [address] Villarreal-Stophe l, Perri Taresa, DO Questions (PESSARY ) 01/21/[address] [place] [address] Villarreal-Stophe l Perri Taresa, DO Results (Ultrasound results ) 01/20/2025 Orders Only [address] [place] [address] VillarrealPerri Madrid, DO <No scans attached> 01/17/2025 10:48 AM CDT - 01/17/2025 11:59 PM CDT Hospital Encounter [facility] [address] [facility] [place] [address] Perri Bhatia, Left ovarian cyst 01/17/2025 Travel 01/10/2025 2:15 PM CDT Office Visit [facility] [address] [place] [address] Perir Bhatia, Follow Up 01/10/2025 Travel 12/09/2024 Telephone [facility] [address] [place] [address] Perri Bhatia, Results 12/06/2024 3:15 PM DEVELOPMENTAL SERVICES WORKER Office Visit [facility] [address] [place] [address] Perri Bhatia, DO Pelvis Pain/problem 12/06/2024 Travel [...] on file Legal Sex Female 5:48 AM DEVELOPMENTAL SERVICES WORKER Gender Identity Not on file Sexual Orientation [...] g 6 7 PETIT AGAPIT O,BB Delivery Location:[facility] Comments:pPROM at 30 4 /7 weeks; choriomanionitis Last Filed Vital Signs Vital Sign Reading Time Taken Comments Blood Pressure 142/82 02/20/2025 9:07 AM CDT Pulse 88 02/20/2025 9:07 AM CDT Temperature 36.7 C (98 F) 11/24/2024 12:04 PM DEVELOPMENTAL SERVICES WORKER Respiratory Rate 14 11/24/2024 12:0 4 PM DEVELOPMENTAL SERVICES WORKER Oxygen Saturation 97% 02/20/2025 9:07 AM CDT [...] CHLAMYDIA TRACH PROBE Routine 12/06/2024 3:20 PM DEVELOPMENTAL SERVICES WORKER Vaginal discharge TRICHOMONAS, REKHA, AND BACTERIAL VAGINOSIS BY FRIEDA Routine 12/06/2024 3:20 PM DEVELOPMENTAL SERVICES WORKER Vaginal discharge FINISH MENDER THIN PREP PAP SCREEN IMAGED Routine 06/28/2019 [...] REKHA SPECIES Negative Negative 3:11 AM CDT [facility] REKHA GLABRATA Negative Negative 02/21/2025 3:11 AM CDT [facility] TRICHOMONAS VVA Negative Negative 3:11 AM CDT [facility] BACTERIAL VAGINOSIS Negative Negative 02/21/2025 3:11 AM CDT [facility] Other VAGINAL SWAB / Unknown Non-Blood / Unknown 02/20/2025 11:58 AM CDT 02/20/2025 11:59 AM CDT us Perri Mendoza DO MICROBIOLOGY Final Result [facility] [address] [place] [address], [place] * URINALYSIS MICROSCOPIC (02/20/2025 9:57 AM CDT) Only the most recent of2 resultswithin the time period is included. RBC None Seen 0-2, None Seen /HPF 02/20/2025 10:12 AM CDT [facility] WBC 0-2 0-2, 3-5, None Seen /HPF 02/20/2025 10:12 AM CDT [facility] BACTERIA None Seen None Seen, Rare, Few Bacteria/ HPF 02/20/2025 10:12 AM CDT [facility] EPITHELIAL CELLS Few None Seen, Few Epi/HPF 02/20/2025 10:12 AM CDT [facility] Urine URINE SPECIMEN / Unknown Non-Blood / Unknown 02/20/2025 9:57 AM CDT 02/20/2025 9:57 AM CDT us Perri TarAethona Villarreal-Stophel DO URINE Final Result [facility] [address] [place] [id number] * URINE CULTURE [15364.2] - STAT (02/20/2025 9:57 AM CDT) Only the most recent of2 resultswithin the time period is included. CULTURE <10,000 CFU/mL multiple organisms 02/22/2025 2:36 PM CDT [facility] Urine URINE SPECIMEN / Unknown Non-Blood / Unknown 02/20/2025 9:57 AM CDT 02/20/2025 9:57 AM CDT us Perri TarAethona Villarreal-Stophel DO MICROBIOLOGY Final Result [facility] [address] [place] [address], [place] * (ABNORMAL) UA W/ SEDIMENT EXAM REFLEXED PER CRITERIA [79584.2] - STAT (02/20/2025 9:57 AM CDT) Only the most recent of2 resultswithin the time period is included. COLOR Yellow Yellow Color 02/20/2025 10:09 AM [facility] CLARITY Clear Clear Clarity 02/20/2025 10:09 AM [facility] SPECIFIC GRAVITY,URINE 1.015 1.010, 1.015, 1.020, 1.025 02/20/2025 10:09 AM [facility] PH,URINE 6.0 6.0, 7.0, 8.0, 5.5, 6.5, 7.5, 8.5 02/20/2025 10:09 AM [facility] UROBILINOGEN, QUALITATIVE Normal Normal EU/dl 02/20/2025 10:09 AM [facility] PROTEIN, URINE Negative Negative mg/dL 02/20/2025 10:09 AM [facility] GLUCOSE, URINE >=1000(A) Negative mg/dL 02/20/2025 10:09 AM [facility] KETONES,URINE Negative Negative mg/dL 02/20/2025 10:09 AM [facility] BILIRUBIN,URI NE Negative Negative 02/20/2025 10:09 AM [facility] OCCULT BLOOD,URINE Negative Negative 02/20/2025 10:09 AM [facility] NITRITE Negative Negative 02/20/2025 10:09 AM [facility] LEUKOCYTE ESTERASE Negative Negative 02/20/2025 10:09 AM [facility] Urine URINE SPECIMEN / Unknown Non-Blood / Unknown 02/20/2025 9:57 AM CDT 02/20/2025 9:57 AM CDT us Perri Villarreal-Stophel DO URINE Final Result [facility] [address] [place] [address] * GC CHLAMYDIA TRACH PROBE (02/03/2025 3:33 PM CDT) Only the most recent of2 resultswithin the time period is included. CHLAMYDIA PROBE Negative 12:53 PM CDT [facility] N GONORRHOEAE PROBE Negative 02/04/2025 12:53 PM CDT [facility] Other VAGINAL SWAB / Unknown Non-Blood / Unknown 02/03/2025 3:33 PM CDT 02/03/2025 3:56 PM CDT us Perri Mendoza DO MICROBIOLOGY Final Result [facility] [address] [place] [address], [place] * US PELVIS COMPLETE TA AND [...] Perri Mendoza DO US Final Result * FINISH MENDER THIN PREP PAP SCREEN IMAGED (06/28/2019 10:45 AM CDT) Case Report Gynecologic Cytology Report Case: [id number] Authorizing Provider: Leona Adler MD Collected: 06/28/2019 1045 Ordering Location: [facility] Received: 07/01/2019 0754 First Screen: Hillary Camacho Specimen: FINISH MENDER ThinPrep Vial Screening, Cervical/Vaginal 07/05/2019 11:07 AM CDT [facility] INTERPRETATION/ RESULT NEGATIVE FOR INTRAEPITHELIAL LESION OR MALIGNANCY (NIL) (none) 07/05/2019 11:07 AM CDT [facility] at 1107 CDT SPECIMEN ADEQUACY Satisfactory for evaluation Endocervical component present 07/05/2019 11:07 AM CDT [facility] HPV REQUEST HPV and PAP 07/05/2019 11:07 AM CDT [facility] Date of LMP 07/05/2019 11:07 AM CDT [facility] Comment:unsure Automated Review Successful 07/05/2019 11:07 AM CDT [facility] Comment:Specimen processed s uccessfully by automated automotive warranty administrator device, ThinPrep Imaging System, [employer] ANCILLARY TESTING FINISH MENDER HPV Ordered, Please see separate report 07/05/2019 11:07 AM CDT [facility] Note The pap test is a [...] lesions. Cytology is screened and interpreted at [facility] Laboratory - [address], [place] [address] and [facility] - [address] [place] [address]; [place] [address] and [facility] - [address]; [place] [address] and [facility] [address]; [place] [address] 07/05/2019 11:07 AM CDT [facility] Other (Cervical/Vagina l) 06/28/2019 10:45 AM CDT 07/01/2019 7:54 AM CDT Leona Adler MD PATHOLOGY/CYTOLOGY Final Result [facility] [address] [place] [address], * ANTI HCV (03/18/2014 6:12 AM CDT) HEPATITIS C ANTIBODY Non-Reacti ve Non-Reacti ve 03/18/2014 7:25 AM CDT [facility] Blood specimen (specimen) BLOOD SPECIMEN / Unknown Venipuncture / Unknown 03/18/2014 6:12 AM CDT 03/18/2014 6:39 AM CDT Narrative [facility] - 03/18/2014 7:25 AM CDT Antibodies to HCV not detected; does not exclude the possibility of exposure to HCV. George Ruiz MD SEND OUTS Final R esult [facility] [address] [place] [address], [place] * Patient Source Rapid HIV - Unknown HIV (03/09/2014 12:30 AM CDT) SOURCE RAPID HIV SCREEN Non-Reacti ve Non-Reacti ve 03/09/2014 1:15 AM CDT [facility] Blood specimen (specimen) BLOOD SPECIMEN / Unknown Non-Lab Venipuncture / Unknown 03/09/2014 12:30 AM CDT 03/09/2014 12:40 AM CDT us Madeleine Yip MD SEND OUTS Final Result [facility] [address] [place] [address], [place] from Last 3 Months or Most Recently Relevant to Health Maintenance Advance Directives * Full Code (Latest Code Status on File) Date Activated Date Inactivated Comments 03/15/2014 3:24 AM 03/18/2014 8:29 PM * Full Code Date Activated Date Inactivated Comments 03/09/2014 3:33 AM 03/11/2014 1:11 PM * Full Code Date Activated Date Inactivated Comments 02/28/2014 9:43 AM 03/09/2014 3:33 AM Care Teams Real Estate Associate Attorney Relationship Specialty Start Date End Date Pcp, No . PCP - General 02/06/23
[2025-02-28] MEDS: cefTRIAXone 1 GM in 0.9 % SODIUM CHLORIDE Mini-bag 100 ML IVPB (15:38)
[2025-02-28] MEDS: KETOROLAC 30 MG/ML inj IVP (15:38)
[2025-02-28 15:40] LABS: Chloride* 99 mmol/L (96-114)
[2025-02-28 15:41] LABS: Potassium* 4.3 mmol/L (3.6-5.1); Sodium* 133 mmol/L (135-149)
[2025-02-28 15:44] LABS: Anion Gap 11 mEq/L (7-15); Blood Urea Nitrogen* 16 mg/dL (5-24); Calcium* 9.6 mg/dL (8.4-10.6); Carbon Dioxide* 23 mmol/L (20-32); Creatinine* 0.5 mg/dL (0.5-1.5); Est. Creatinine Clearance* 113.82; Estimated Glomerular Filt Rate 116 ml/min
[2025-02-28] MEDS: 0.9 % SODIUM CHLORIDE 1000 ml 1,000 ML IV (15:46)
[2025-02-28 15:53] LABS: Glucose* 431 mg/dL (60-115)
--- NOTE | 2025-02-28 17:04 | ED.FEVER ---
HPI - Fever General Chief Complaint: Fever Stated Complaint: Fever, chills, possible UTI Time Seen by Provider: 02/28/25 15:21 History of Present Illness HPI Narrative: This 49-year-old female comes in with fever and tachycardia a for the past few days. She has dysuria symptoms and states that she has frequent urinary tract infections. Her daughter speaks Polish but the patient herself does not so bilingual interpreter services were employ. Related Data Previous Rx's ?Medication ?Instructions ?Recorded metformin 500 mg tablet,extended 500 mg PO QPM #7 tabs 10/11/24 release 24 hr cephalexin 500 mg capsule 500 mg PO TID 7 days #21 caps 02/28/25 Allergies Allergy/AdvReac Type Severity Reaction Status Date / Time amoxicillin Allergy Severe Verified 02/28/25 14:04 Review of Systems Status of ROS Reports: 10 or more systems reviewed and unremarkable except as noted in History and below Narrative Constitutional: No weight gain or loss. Patient arrives with a fever. Eyes: No discharge. No vision changes. HENT: No congestion, no sore throat, no ear pain. Cardiovascular: No chest pain, no palpitations. Respiratory: No shortness of breath, no wheezes, no cough. Gastrointestinal: No abdominal pain, no vomiting, no diarrhea. Musculoskeletal: Normal range of motion. Skin: No rashes, no pruritis. Neurological: No dizziness, weakness, sensory change, speech change. Endo/Heme/Allergies: No bruising or bleeding. No polydipsia. Pysch: no suicidality, no anxiety, no insomnia. All other systems reviewed and are negative. [facility] Medical History (Reviewed 02/28/25 @ 14:03 by Denise Montelongo, SURFACE GRINDING MACHINE HAND, EXHIBIT BUILDER) Hungarian speaking patient Uninsured ?Z59.89 - Other problems related to housing and economic circumstances (ICD-10) Vomiting ?R11.10 - Vomiting, unspecified (ICD-10) Vaginal discharge ?N89.8 - Other specified noninflammatory disorders of vagina (ICD-10) Mass of left inguinal region ?R19.09 - Other intra-abdominal and pelvic swelling, mass and lump (ICD-10) Encounter for examination following surgery ?Z09 - Encounter for follow-up examination after completed treatment for conditions other than malignant neoplasm (ICD-10) Chest pain ?R07.9 - Chest pain, unspecified (ICD-10) Acute renal insufficiency ?N28.9 - Disorder of kidney and ureter, unspecified (ICD-10) Acute kidney injury ?N17.9 - Acute kidney failure, unspecified (ICD-10) Abscess of right groin ?L02.214 - Cutaneous abscess of groin (ICD-10) Abscess of left groin ?L02.214 - Cutaneous abscess of groin (ICD-10) Surgical History Status post incision and drainage ?Z98.890 - Other specified postprocedural states (ICD-10) History of cholecystectomy ?Z90.49 - Acquired absence of other specified parts of digestive tract (ICD-10) Family History Father Diabetes Mother Diabetes Family/Other Diabetes Son Seizure Social History Narrative: Does not drink alcohol Does not exercise 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 HEENT: Normocephalic, atraumatic. Neck: Normal range of motion. Nontender. Supple. Heart: Regular. No murmurs. Tachycardia. Intact distal pulses. Lungs: Clear to auscultation. No chest discomfort. No wheezes, rhonchi, or rales. Abdomen: Normal bowel sounds. Nontender. No rebound tenderness. Genitalia: Deferred. Back: No midline tenderness. Normal range of motion. Extremities: Normal range of motion. No injury. Skin: Intact. No rash. Warm. No erythema or pallor. Neurologic: No altered sensation. No weakness. Alert and oriented. Psychiatric: No suicidality. No anxiety or depression. No insomnia. Nursing notes and vitals signs are reviewed. Const Vital Signs, click to edit/add: Vital Signs - 24 hr 02/28/25 14:42 02/28/25 15:21 02/28/25 15:22 Temperature 102.8 F H Pulse Rate 122 H 126 H Pulse Rate [Pulse Oximeter] 122 H Respiratory Rate 20 Blood Pressure 163/93 H Blood Pressure [Right Upper Arm] 158/93 H Pulse Oximetry 96 91 97 Oxygen Delivery Method Room Air 02/28/25 15:30 02/28/25 15:31 02/28/25 15:45 Temperature Pulse Rate 128 H 127 H 123 H Pulse Rate [Pulse Oximeter] Respiratory Rate 22 Blood Pressure 168/98 H Blood Pressure [Right Upper Arm] Pulse Oximetry 94 97 93 Oxygen Delivery Method 02/28/25 15:48 02/28/25 15:49 02/28/25 16:00 Temperature Pulse Rate 125 H 124 H 125 H Pulse Rate [Pulse Oximeter] Respiratory Rate 20 Blood Pressure 155/87 H Blood Pressure [Right Upper Arm] Pulse Oximetry 93 95 92 Oxygen Delivery Method 02/28/25 16:02 02/28/25 16:03 02/28/25 16:15 Temperature 102 F H Pulse Rate 124 H 124 H 123 H Pulse Rate [Pulse Oximeter] Respiratory Rate 16 Blood Pressure 149/80 H Blood Pressure [Right Upper Arm] Pulse Oximetry 92 92 94 Oxygen Delivery Method Room Air 02/28/25 16:30 02/28/25 16:31 02/28/25 16:58 Temperature Pulse Rate 124 H 121 H 122 H Pulse Rate [Pulse Oximeter] Respiratory Rate Blood Pressure 144/84 H Blood Pressure [Right Upper Arm] Pulse Oximetry 91 94 95 Oxygen Delivery Method 02/28/25 16:59 02/28/25 17:00 Temperature 102 F H 102 F H Pulse Rate 121 H Pulse Rate [Pulse Oximeter] Respiratory Rate 18 Blood Pressure 140/78 H Blood Pressure [Right Upper Arm] Pulse Oximetry 95 Oxygen Delivery Method Room Air Course Vital Signs Vital signs: Initial Vital Signs Temperature 102.8 F H 02/28/25 14:42 Temperature Source Oral 02/28/25 14:42 Pulse Rate 122 H 02/28/25 14:42 Respiratory Rate 20 02/28/25 14:42 Blood Pressure 158/93 H 02/28/25 14:42 Blood Pressure Mean 114 H 02/28/25 14:42 Blood Pressure Position Sitting 02/28/25 14:42 Pulse Oximetry 96 02/28/25 14:42 Oxygen Delivery Method Room Air 02/28/25 14:42 Vital Signs Temperature 102.8 F H 02/28/25 14:42 Pulse Rate 122 H 02/28/25 14:42 Respiratory Rate 20 02/28/25 14:42 Blood Pressure 158/93 H 02/28/25 14:42 Pulse Oximetry 96 02/28/25 14:42 Oxygen Delivery Method Room Air 02/28/25 14:42 Temperature 102 F H 02/28/25 17:00 Pulse Rate 121 H 02/28/25 16:59 Respiratory Rate 18 02/28/25 16:59 Blood Pressure 140/78 H 02/28/25 16:59 Pulse Oximetry 95 02/28/25 16:59 Oxygen Delivery Method Room Air 02/28/25 16:59 Medications Administered Medications: Discontinued Medications Generic Name Dose Route Start Last Admin Trade Name Freq PRN Reason Stop Dose Admin Acetaminophen 1,000 mg 02/28/25 15:28 02/28/25 15:37 Acetaminophen 500 Mg Tablet PO 02/28/25 15:29 1,000 mg ONCE ONE Administration Ceftriaxone Sodium 1 gm/ 100 mls @ 200 mls/hr 02/28/25 15:28 02/28/25 16:15 Sodium Chloride IVPB 02/28/25 15:29 Infused ONCE ONE Infusion Sodium Chloride 1,000 mls @ 1,000 mls/hr 02/28/25 15:45 02/28/25 16:54 0.9 % Sodium Chloride 1000 Ml IV 02/28/25 16:44 Infused .Q1H REG Infusion Ketorolac Tromethamine 30 mg 02/28/25 15:28 02/28/25 15:38 Ketorolac 30 Mg/Ml Inj IVP 02/28/25 15:29 30 mg ONCE ONE Administration MDM - Fever MDM Narrative Medical decision making narrative: This patient arrives with dysuria symptoms typical of urinary tract infection. She arrives with the fever and tachycardia. An IV was established and a workup to rule out sepsis was done. Her lactate level returns normal range. After blood cultures obtained the patient did receive an IV dose of Rocephin 1 g. Lab results returned with reassuring findings in general. She does have elevated glucose at 451. She did receive an oral dose of Tylenol and an IV dose of Toradol. The patient states that she is feeling better. This patient is okay to be discharged home. I did provide a prescription for Keflex. Lab Data Labs: Lab Results 02/28/25 Range/Units 15:15 WBC 9.70 (4.50-11.00) K/uL RBC 4.62 (4.00-5.20) m/uL Hgb 13.8 (12.0-16.0) gm/dL Hct 40.0 (33.0-51.0) % MCV 87 (80-100) fL MCH 30 (26-34) pg MCHC 35 (32-36) gm/dL RDW Coeff of Adrian 12.1 (11.5-15.5) % Plt Count 238 (140-440) K/uL Neut % (Auto) 85.7 H (42.0-72.0) % Lymph % (Auto) 6.8 L (20-44) % [place] % (Auto) 6.1 (0.0-11.0) % Eos % (Auto) 0.1 (0.0-7.0) % Baso % (Auto) 0.2 (0.0-3.0) % Neut # (Auto) 8.30 H (1.7-7.0) K/uL Lymph # (Auto) 0.70 L (0.90-2.90) K/uL [place] # (Auto) 0.60 (0.00-0.90) K/UL Eos # (Auto) 0.01 (0.00-0.50) K/uL Baso # (Auto) 0.02 (0.00-0.30) K/uL Abs Immat Gran (auto) 0.11 (0.00-0.30) K/uL Imm/Tot Granulo (auto) 1.1 % Sodium 133 L (135-149) mmol/L Potassium 4.3 (3.6-5.1) mmol/L Chloride 99 (96-114) mmol/L Carbon Dioxide 23 (20-32) mmol/L Anion Gap 11 (7-15) mEq/L BUN 16 (5-24) mg/dL Creatinine 0.5 (0.5-1.5) mg/dL Estimated Creat Clear 113.82 Estimated GFR 116 ml/min Glucose 431 H* (60-115) mg/dL Lactate 1.7 (0.5-1.9) mmol/L Calcium 9.6 (8.4-10.6) mg/dL C-Reactive Protein 4.0 H (0.5-1.0) mg/dL Discharge Plan Discharge Clinical Impression: Urinary tract infection Patient Disposition: Home w/ Parent or Adult Condition: Improved Additional Instructions: Take medication as prescribed. Use [id number] medicines also as needed and directed. Follow up with primary physician to recheck urine and reconsider management of blood glucose. Return if worsening. Prescriptions: New cephalexin 500 mg capsule 500 mg PO TID 7 Days Qty: 21 0RF No Action metformin 500 mg tablet extended release 24 hr 500 mg PO QPM Qty: 7 0RF Rx Instructions: Take with evening meal for days 1-7 of treatment Follow Up/Referrals: Provider,Not a Local [Primary Care Provider] - Stand Alone Forms: MyHealth Info Instructions
== END 2025-02-28 17:29 | disposition home or self-care (01) ==
PROVIDERS: Emergency Provider Emergency Medicine Emergency Medical Services
DX: N39.0 Urinary tract infection, site not specified (principal)
CPT/HCPCS: 36415; 80048; 83605; 85025; 86140; 87040; 96365; 96375; 99284; A9270; J0696; J1885; J7030

== ENCOUNTER 2025-10-05 10:26 | Outpatient (CLI) | payer OTHER, SELFPAY | END 2025-10-05 10:27 | disposition home or self-care (01) | LOC: NFLDREF 10-08 15:43 | PROVIDERS: Visit Provider Physician Assistant Surgical | DX: N30.01 Acute cystitis with hematuria (principal) | CPT/HCPCS: 87086 ==